=== PATIENT | female | born 2000 | race Two or more races ===

== ENCOUNTER 2020-06-06 22:35 | Emergency (ER) | payer MEDICAID, OTHER ==
[~2020-06-06] VITALS: Ht 162.6 cm; Wt 75.7 kg
[2020-06-06 22:40] VITALS: BP 118/69
[2020-06-06 23:33] LABS: Urine Bacteria FEW /hpf (None Seen); Urine Blood 1+ /uL (Negative); Urine Mucus FEW (None Seen); Urine Specific Gravity 1.005 (1.001-1.035); Urine WBC 37 /hpf (0 - 5)
[2020-06-07 03:55] LABS: Urine Budding Yeast None Seen /hpf (None Seen)
[2020-06-07] MEDS ORDERED: cefTRIAXone SOD 1,000 MG VL IM ONE (04:15)
[2020-06-07] MEDS ORDERED: AZITHROMYCIN 250 MG TAB PO ONE (04:15)
== END 2020-06-07 05:32 | disposition home or self-care (01) ==
LOC: ER 22:35
DX: O23.43 Unspecified infection of urinary tract in pregnancy, third trimester (principal); Z3A.35 35 weeks gestation of pregnancy
CPT/HCPCS: 81001; 81025; 96372; 99283; J0696

== ENCOUNTER 2021-05-17 14:06 | Emergency (ER) | payer MEDICAID ==
[~2021-05-17] VITALS: Ht 162.6 cm; Wt 72.6 kg
[2021-05-17 17:23] VITALS: BP 124/80
== END 2021-05-17 18:03 | disposition home or self-care (01) ==
LOC: ER 14:06
DX: S63.601A Unspecified sprain of right thumb, initial encounter (principal); W23.0XXA Caught, crushed, jammed, or pinched between moving objects, initial encounter; Y93.89 Activity, other specified; Y92.89 Other specified places as the place of occurrence of the external cause; Y99.8 Other external cause status
CPT/HCPCS: 29130; 73140

== ENCOUNTER 2021-11-16 11:05 | Observation (INO) | payer MEDICAID ==
[2021-11-16] MEDS ORDERED: PREN-96 PO (12:55)
== END 2021-11-16 13:28 | disposition home or self-care (01) ==
LOC: UNDOADMOB 11:05 → LDRP 11:05 → UNDODISOB 13:28
PROVIDERS: ADMIT Obstetrics & Gynecology; ATTEND Obstetrics & Gynecology
DX: O24.419 Gestational diabetes mellitus in pregnancy, unspecified control (principal); Z3A.27 27 weeks gestation of pregnancy
CPT/HCPCS: 59025; 81002; 84112; 94760; G0378; Q0114